=== PATIENT | female | born 1960 | race Caucasian/White ===

== ENCOUNTER → 2019-07-02 | Day surgery (SDC) | payer OTHER | END | disposition home or self-care (01) | LOC: DS 09:00 | PROVIDERS: ATTEND Orthopaedic Surgery | DX: G56.01 Carpal tunnel syndrome, right upper limb (principal); E78.5 Hyperlipidemia, unspecified; Z79.899 Other long term (current) drug therapy | CPT/HCPCS: 64721; A4565; A6402; J0690; J1100; J2405; J2704; J3490 ==